=== PATIENT | male | born 2000 | race Hispanic/Latino ===

== ENCOUNTER 2021-01-10 15:05 | Emergency (ER) | payer OTHER ==
[~2021-01-10] VITALS: Ht 162.6 cm; Wt 81.6 kg
[2021-01-10] MEDS ORDERED: CEFTRIAXONE 250MG VIAL IJ SCH (16:00)
[2021-01-10] MEDS ORDERED: AZITHROMYCIN 250 MG TABLET PO ONE (16:00)
[2021-01-10] MEDS ORDERED: DOXY-336 PO (16:04)
[2021-01-10] MEDS ORDERED: CEFTRIAXONE 500MG VIAL ONE (16:44)
[2021-01-10] MEDS ORDERED: LIDOCAINE HCL-MPF 1% 2ML VIAL ONE (16:44)
[2021-01-10 16:54] VITALS: BP 132/70
== END 2021-01-10 17:12 | disposition home or self-care (01) ==
LOC: EDH 15:05
DX: A74.9 Chlamydial infection, unspecified (principal)
CPT/HCPCS: 96372; 99283; J0696 ×2; J3490